=== PATIENT | female | born 1985 ===

== ENCOUNTER 2019-02-11 10:50 | Emergency (ER) | payer BC ==
--- OUTSIDE RECORDS SUMMARY | 2019-02-11 10:55 | XMS REPORT | Continuity of Care Document ---
:1985 External Reference #:[id number] Author Name Radha Huang M.D. Address [address] [place] [id number] Problems Active Problems Provider Date Allergic rhinitis Radha Huang M.D. Onset: 01/21/2019 Mild persistent asthma Radha Huang M.D. Onset: 01/21/2019 Atopic dermatitis Radha Huang M.D. Onset: 01/21/2019 Social History Type Date Description Comments Sex Unknown ETOH Use Occasionally consumes alcohol Tobacco Use Start: Unknown Patient has never smoked Recreational Drug Use Never Used Drugs Allergies, Adverse Reactions, Alerts Description No Known Drug Allergies Medications Active Medications SIG Qnty Indications Ordering Date Provider Symbicort 2 inhalations am&pm 10.200gm Radha Velázquez 01/21/2019 Justine Huang 160-4.5mcg/Act Aerosol Albuterol Sulfate Unknown HFA 108(90Base) mcg/Act Aerosol Advair HFA 2 puff twice a day Unknown 230-21mcg/Act Aerosol Mirena (52 MG) Unknown 20mcg/24HR IUD Cymbalta Unknown 60mg Caps DR Part Immunizations Description No Information Available Vital Signs Date Vital Result Comment 01/21/2019 8:50am Height 62 inches 5'2" Weight 124.00 lb Weight 56.246 kg Respiratory Rate 20 /min Heart Rate 91 /min O2 % BldC Oximetry 98 % BP Systolic 110 mmHg BP Diastolic 73 mmHg Fractional Exhaled Nitric Oxide 128 BMI (Body Mass Index) 22.7 kg/m2 Results Description No Information Available Procedures Date Code Description Status 01/21/2019 11020 Nitric Oxide Gas Determination Completed 01/21/2019 67218 Pulmonary Function Test Completed Medical Devices Description No Information Available Encounters Description No Information Available Assessments Date Code Description Provider 01/21/2019 L20.9 Atopic dermatitis, unspecified Radha Huang M.D. 01/21/2019 J45.30 Mild persistent asthma, uncomplicated Radha Huang M.D. 01/21/2019 J30.9 Allergic rhinitis, unspecified Radha Huang M.D. Plan of Treatment 01/21/2019 - Radha Huang M.D.L20.9 Atopic dermatitis, unspecifiedRecommendations:skin care recommendations: Soaking baths 20-30 mins twice daily Recommend moisturizer 3-4x/day (Vanicream or Vaseline) Use 1% hydrocortisone cream twice daily as needed to affected areas OR Triamcinolone 0.025% twice daily to affected areas (not the face) Bleach baths discussed; 1/4 -1/2 cup of regular strength bleach in a full tub of water. Soak 10-20 minutes 1-2x/week.J45.30 Mild persistent asthma, uncomplicatedRecommendations: Jeanne Full PFT today Pathophysiology of asthma reviewed Use Albuterol 2 puffs every 4 hours as needed for cough, wheezing shortness of breath or chest tightness OR 15 mins prior to exercise. Call if using >2x/week aside from pre-exercise. start Symbicort 160/4.5 2 puffs twice daily; rinse mouth after useJ30.9 Allergic rhinitis, unspecifiedFollow up:2-3 weeks, *DISCUSSION: After the evaluation is completed, the results and treatment choices will beexplained.Recommendations:consider retesting when you are interested in immunotherapy continue Cetirizine 10 mg or Xyzal 5 mgonce daily as needed Functional Status Description No Information Available Mental Status Description No Information Available Referrals Description No Information Available
--- NOTE | 2019-02-11 11:03 | UC ---
Psychiatric Complaint HPI - HPI Summary HPI Summary: 33 yo female presents with anxiety. She is accompanied by her friend today. Pt tells me that for the last 10-15 years she has had anxiety and has been on effexor, lexapro, and cymbalta. She found the cymbalta worked well and has been stable with 60mg once a day for the last 4 years. She recently moved here from [place] and has not established with a PCP yet. She ran out of her Cymbalta about 2.5 weeks ago and called her PCP in [place] for a refill, but they would not refill it as she has moved. She stopped this abruptly. Since that time has had increased anxiety, shakiness, trouble sleeping, nausea, decreased appetite, and trouble focusing at work. She has not had any fevers, SOB, chest pain, or abdominal pain. She denies SI/HI or wanting to hurt herself. - History Of Current Complaint Chief Complaint: UCMedRefill Stated Complaint: MED REFILL Time Seen by Provider: 02/11/19 11:03 Hx Obtained From: Patient Hx Last Menstrual Period: iud Onset/Duration: Gradual Onset - Allergies/Home Medications Allergies/Adverse Reactions: Allergies Allergy/AdvReac Type Severity Reaction Status Date / Time No Known Allergies Allergy Verified 02/11/19 10:59 Home Medications: Home Medications Budesonide/Formote 160/4.5(NF) [Symbicort 160/4.5 (NF)] 2 puff INH BID 02/11/19 [History Confirmed 02/11/19] Levonorgestrel (Iud) [Mirena IUD] 20 mcg IU ONCE 02/11/19 [History Confirmed 05/01] RX: Albuterol HFA INHALER* [Ventolin HFA Inhaler*] 2 puff INHH TID 02/11/19 [ History Confirmed 02/11/19] PMH/Surg Hx/FS Hx/Imm Hx Respiratory History: Asthma Psychological History: Anxiety - Surgical History Surgical History: Yes Surgery Procedure, Year, and Place: as a child - Social History Alcohol Use: Occasionally Substance Use Type: None Smoking Status (MU): Never Smoked Tobacco Review of Systems All Other Systems Reviewed And Are Negative: No Constitutional: Positive: Negative Skin: Positive: Negative Eyes: Positive: Negative ENT: Positive: Negative Respiratory: Positive: Negative Cardiovascular: Positive: Negative Gastrointestinal: Positive: Nausea Genitourinary: Positive: Negative Motor: Positive: Negative Neurovascular: Positive: Negative Musculoskeletal: Positive: Negative Neurological: Positive: Headache Psychological: Positive: Anxious Is Patient Immunocompromised?: No Physical Exam - Summary Physical Exam Summary: GENERAL: Anxious appearing. WDWN SKIN: No rashes, sores, or open wounds. NECK: Supple. Nontender. No lymphadenopathy. CHEST: CTAB. No r/r/w. No accessory muscle use. Breathing comfortably and in no distress. CV: RRR. Pulses intact. Brisk cap refill. ABDOMEN: Soft. NTTP. No CVA tenderness. Bowel sounds present NEURO: Alert. PSYCH: Anxious appearing. Triage Information Reviewed: Yes Vital Signs: Initial Vital Signs Temp 98 F 02/11/19 10:56 Pulse 74 02/11/19 10:56 Resp 15 02/11/19 10:56 BP 123/81 02/11/19 10:56 Pulse Ox 100 02/11/19 10:56 Vital Signs Reviewed: Yes Re-Evaluation - Re-Evaluation First Eval Re-Evaluation Time: 11:57 Change: Improved Comment: Feeling much better s/p ativan. Psych Complaint Course/Dx - Course Course Of Treatment: Reference #: [id number] istop In the clinic pt was given 1mg Ativan for her anxiety and had great relief with this. She has called several psychiatrists and med prescribing therapists in the area and is waiting for calls back to make an appointment. Will restart her Cymbalta at 60mg once a day and give her a week supply of BID Ativan prn to bridge her anxiety until the cymbalta starts to provider her relief. Strongly recommended to go to the ER if she develops any thoughts of hurting herself or others. - Differential Dx/Diagnosis Provider Diagnosis: Anxiety Discharge ED - Sign-Out/Discharge Documenting (check all that apply): Patient Departure All imaging exams completed and their final reports reviewed: No Studies - Discharge Plan Condition: Stable Disposition: HOME Prescriptions: RX: DULoxetine CAP* [Cymbalta CAP*] 60 mg PO DAILY #60 cap. LORazepam TAB(*) [Ativan 0.5 MG TAB (*)] 0.5 mg PO BID PRN #14 tab MDD 2 PRN Reason: Anxiety Patient Education Materials: Anxiety (ED) Referrals: No Primary Care Phys,NOPCP [Primary Care Provider] - [facility] [Outside] - As Soon As Possible Additional Instructions: If you develop a fever, shortness of breath, chest pain, new or worsening symptoms - please call your PCP or go to the ED immediately. Please follow up with a Psychiatrist and PCP as soon as possible. - Billing Disposition and Condition Condition: STABLE Disposition: Home
[2019-02-11] MEDS ORDERED: LORazepam TAB(*) 1 MG PO ONE (11:16)
== END 2019-02-11 12:08 | disposition home or self-care (01) ==
LOC: UCEAST 10:50
DX: F41.9 Anxiety disorder, unspecified (principal); J45.909 Unspecified asthma, uncomplicated; R51 Headache; Z79.899 Other long term (current) drug therapy
CPT/HCPCS: 99202; A9270-GY; G0463